=== PATIENT | female | born 1980 | race Two or more races ===

== ENCOUNTER → 2017-03-02 | Outpatient (CLI) | payer OTHER | LOC: BRMIMAGING 14:36 | PROVIDERS: ATTEND Emergency Medicine | DX: E63.9 Nutritional deficiency, unspecified (principal) ==

== ENCOUNTER → 2017-03-22 | Outpatient (CLI) | payer OTHER | LOC: CIMAGING 12:30 | DX: K11.5 Sialolithiasis (principal) | CPT/HCPCS: 76536-PO ==

== ENCOUNTER → 2017-03-29 | Day surgery (SDC) | payer OTHER ==
[~2017-03-29] MED LIST: IOPAMIDOL (ISOVUE-M 300) 15 ML VIAL ONE
== END | disposition home or self-care (01) ==
LOC: FIMAGING 11:05
PROVIDERS: ATTEND Emergency Medicine
PROC: 3E0 Administration, Physiological Systems and Anatomical Regions, Introduction (ICD-10-PCS; principal; 2017-03-29)
DX: K11.5 Sialolithiasis (principal)
CPT/HCPCS: Q9967

== ENCOUNTER 2017-10-02 15:08 | Emergency (ER) | payer OTHER ==
--- NOTE | 2017-10-02 15:33 | EDPHY ---
H & P Stated Complaint: abdominal pain, nasuea, bloating, no appetite past few days Time Seen by Provider: 10/02/17 15:33 HPI/ROS: CHIEF COMPLAINT: Dehydration, abdominal bloating HISTORY OF PRESENT ILLNESS: The patient presents to the ED with complaints of dehydration and abdominal bloating. The patient has a history of chronic abdominal pain and reported gastroparesis. She has had extensive evaluation by life enrichment assistant today. The patient reports her symptoms are typically improved with fasting however have been somewhat refractory to that intervention over the past day. The patient denies any fever. She denies vomiting. She denies diarrhea. REVIEW OF SYSTEMS: A comprehensive 10 point review of systems is otherwise negative aside from elements mentioned in the history of present illness. Source: Patient - Personal History LMP (Females 10-55): 8-14 Days Ago Current Tetanus/Diphtheria Vaccine: No Current Tetanus Diphtheria and Acellular Pertussis (TDAP): No - Medical/Surgical History Hx Asthma: No Hx Chronic Respiratory Disease: No Hx Diabetes: No Hx Cardiac Disease: No Hx Renal Disease: No Hx Cirrhosis: No Hx Alcoholism: No Hx HIV/AIDS: No Hx Splenectomy or Spleen Trauma: No Other PMH: gastroparesis, IVSC, food sensitivities - Social History Smoking Status: Never smoked - Physical Exam Exam: General Appearance: Alert, no distress Eyes: Pupils equal and round no pallor or injection ENT, Mouth: Mucous membranes moist Respiratory: There are no retractions, lungs are clear to auscultation Cardiovascular: Regular rate and rhythm Gastrointestinal: Minimal epigastric tenderness, decreased bowel sounds bilateral Neurological: 5/5 strength all 4 extremities Skin: Warm and dry, no rashes Musculoskeletal: Neck is supple nontender Extremities: symmetrical, full range of motion Constitutional: Initial Vital Signs Temperature (C) 36.4 C 10/02/17 15:11 Heart Rate 79 10/02/17 15:11 Respiratory Rate 20 10/02/17 15:11 Blood Pressure 93/63 L 10/02/17 15:11 O2 Sat (%) 100 10/02/17 15:11 O2 Delivery Mode Room Air Allergies/Adverse Reactions: Penicillins Allergy (Verified 10/02/17 15:10) Sulfa (Sulfonamide Antibiotics) Allergy (Verified 10/02/17 15:10) Home Medications: Medication Instructions Recorded Linzess 10/02/17 Medical Decision Making ED Course/Re-evaluation: The patient had an IV established. She received a L of lactated Ringer's. The patient's laboratory studies are unrevealing. She has no evidence of an acute abdomen. The patient was re-evaluated at 6:00 p.m. and is comfortable being discharged home. She will be advised to follow up with her primary care provider as scheduled. Differential Diagnosis: Differential diagnosis considered includes dehydration, gastroparesis, metabolic abnormality - Data Points Laboratory Results: Laboratory Results 10/02/17 15:30 10/02/17 15:30 10/02/17 10/02/17 15:30 15:30 WBC 5.33 10^3/uL 10^3/uL (3.80-9.50) RBC 4.77 10^6/uL 10^6/uL (4.18-5.33) Hgb 13.1 g/dL g/dL (12.6-16.3) Hct 41.0 % % (38.0-47.0) MCV 86.0 fL fL (81.5-99.8) MCH 27.5 pg L pg (27.9-34.1) MCHC 32.0 g/dL L g/dL (32.4-36.7) RDW 13.8 % % (11.5-15.2) Plt Count 261 10^3/uL 10^3/uL (150-400) MPV 10.6 fL fL (8.7-11.7) Neut % (Auto) 51.4 % % (39.3-74.2) Lymph % (Auto) 33.6 % % (15.0-45.0) [place] % (Auto) 6.0 % % (4.5-13.0) Eos % (Auto) 7.3 % % (0.6-7.6) Baso % (Auto) 1.5 % % (0.3-1.7) Nucleat RBC Rel Count 0.0 % % (0.0-0.2) Absolute Neuts (auto) 2.74 10^3/uL 10^3/uL (1.70-6.50) Absolute Lymphs (auto) 1.79 10^3/uL 10^3/uL (1.00-3.00) Absolute Monos (auto) 0.32 10^3/uL 10^3/uL (0.30-0.80) Absolute Eos (auto) 0.39 10^3/uL 10^3/uL (0.03-0.40) Absolute Basos (auto) 0.08 10^3/uL 10^3/uL (0.02-0.10) Absolute Nucleated RBC 0.00 10^3/uL 10^3/uL (0-0.01) Immature Gran % 0.2 % % (0.0-1.1) Immature Gran # 0.01 10^3/uL 10^3/uL (0.00-0.10) Sodium 142 mEq/L mEq/L (135-145) Potassium 4.2 mEq/L mEq/L (3.5-5.2) Chloride 104 mEq/L mEq/L (97-110) Carbon Dioxide 25 mEq/l mEq/l (22-31) Anion Gap 13 mEq/L mEq/L (8-16) BUN 6 mg/dL L mg/dL (7-23) Creatinine 0.6 mg/dL mg/dL (0.6-1.0) Estimated GFR > 60 Glucose 91 mg/dL mg/dL (70-100) Calcium 9.4 mg/dL mg/dL (8.5-10.4) Medications Given: Discontinued Medications Lactated Ringer's (Lr) 1,000 mls @ 500 mls/hr IV EDNOW ONE Stop: 10/02/17 17:50 Last Admin: 10/02/17 15:56 Dose: 1,000 mls Departure - Departure Disposition: Home, Routine, Self-Care Clinical Impression: Gastroparesis, Dehydration Condition: Good Instructions: Dehydration (ED) Additional Instructions: 1. Please follow-up with your primary care provider as scheduled. 2. Return to the ED for markedly worsening symptoms or other concerns. Referrals: Jermaine Gonzalez MD [Primary Care Provider] - As per Instructions
[2017-10-02 15:47] LABS: PLATELET COUNT 261 10^3/uL (150-400)
[2017-10-02] MEDS ORDERED: LR 1,000 ML IV ONE (15:51)
[2017-10-02 16:53] VITALS: RESP 14
[2017-10-02 18:16] VITALS: BP 104/69; PULSE 70; TEMP 98.1; O2SAT 99
== END 2017-10-02 18:17 | disposition home or self-care (01) ==
DX: E86.0 Dehydration (principal); K31.84 Gastroparesis

== ENCOUNTER 2018-04-24 20:49 | Emergency (ER) | payer OTHER ==
--- NOTE | 2018-04-24 21:19 | EDPHY ---
H & P Stated Complaint: N/V Time Seen by Provider: 04/24/18 21:17 HPI/ROS: HPI: This this is a 38-year-old female who presents with Chief Complaint: Nausea vomiting Location: GI Quality: Nausea vomiting Duration: Today Signs and Symptoms: no fever, + nausea, + vomiting, no hematemesis, no blood in stool, no abdominal bloating, no diarrhea, no back pain, no urinary symptoms, no vaginal bleeding/discharge, no indigestion, no chest pain, no shortness of breath Timing: Acute on chronic Severity: Acute on chronic Context: Patient has a history of gastroparesis, IVSC and food sensitivities presents with complaints of"having a bad day of nausea and vomiting." Patient was recently discharged from the [facility] after 1 month stay and diagnosed with eosinophil esophagitis. Patient reports that she is here in the emergency room as she was unable to contacted nurse renan to obtain IV fluids. She is a Jermaine Lisa patient. Patient is only requesting IV fluids. Patient apologizes profusely that she is irritable and does not want to answer any more questions during the interview. Modifying Factors: None Comment: ROS: A comprehensive 10 system review of systems is otherwise negative aside from elements mentioned in the history of present illness. MEDICAL/SURGICAL/SOCIAL HISTORY: Medical history: gastroparesis, IVSC, food sensitivities Surgical history: Denies Social history: . Family history noncontributory. CONSTITUTIONAL: Nontoxic appearing middle-aged female, awake and alert, no obvious distress HEENT: Atraumatic and normocephalic, PERRL, EOMI. Nares patent; no rhinorrhea; no nasal mucosal edema. Tympanic membranes clear. Oropharynx clear, no exudate and moist pink mucosa. Airway patent. No lymphadenopathy. No meningismus. Cardiovascular: Normal S1/S2, regular rate, regular rhythm, without murmur rub or gallop. PULMONARY/CHEST: Symmetrical and nontender. Clear to auscultation bilaterally. Good air movement. No accessory muscle usage. ABDOMEN: Soft, nondistended, mild generalized tenderness, no rebound, no guarding, no peritoneal signs, no masses or organomegaly. No CVAT. EXTREMITIES: 2/2 pulses, strength 5/5, no deformities, no clubbing, no cyanosis or edema. NEUROLOGICAL: no focal neuro deficits. GCS 15. SKIN: Warm and dry, no erythema. no rash. Good capillary refill. Source: Patient Exam Limitations: No limitations - Personal History LMP (Females 10-55): Unknown Current Tetanus/Diphtheria Vaccine: Unsure - Medical/Surgical History Hx Asthma: No Hx Chronic Respiratory Disease: No Hx Diabetes: No Hx Cardiac Disease: No Hx Renal Disease: No Hx Cirrhosis: No Hx Alcoholism: No Hx HIV/AIDS: No Hx Splenectomy or Spleen Trauma: No Other PMH: gastroparesis, IVSC, food sensitivities - Social History Smoking Status: Never smoked Constitutional: Initial Vital Signs Temperature (C) 36.7 C 04/24/18 20:54 Heart Rate 80 04/24/18 20:54 Respiratory Rate 18 04/24/18 20:54 Blood Pressure 99/66 L 04/24/18 20:54 O2 Sat (%) 99 04/24/18 20:54 O2 Delivery Mode Room Air Allergies/Adverse Reactions: Penicillins Allergy (Verified 04/24/18 20:56) Sulfa (Sulfonamide Antibiotics) Allergy (Verified 04/24/18 20:56) Home Medications: Medication Instructions Recorded Linzess 10/02/17 Medical Decision Making ED Course/Re-evaluation: Vital signs reviewed and stable upon arrival. Patient declines antiemetics, imaging. Labs reviewed. No signs of leukocytosis/platelet dysfunction/TRACI/elevated LFTs/ electrolyte imbalance. Given IV fluids per request and discharged with follow up with Dr. Gonzalez. This patient was seen under the supervision of my secondary supervising physician. I evaluated care for this patient independently. Discussed this patient with Dr. Busch. Differential Diagnosis: Differential diagnosis includes nausea, vomiting - Data Points Laboratory Results: Laboratory Results 04/24/18 21:10 04/24/18 21:10 04/24/18 04/24/18 21:10 21:10 WBC 8.03 10^3/uL 10^3/uL (3.80-9.50) RBC 4.32 10^6/uL 10^6/uL (4.18-5.33) Hgb 12.1 g/dL L g/dL (12.6-16.3) Hct 36.6 % L % (38.0-47.0) MCV 84.7 fL fL (81.5-99.8) MCH 28.0 pg pg (27.9-34.1) MCHC 33.1 g/dL g/dL (32.4-36.7) RDW 13.8 % % (11.5-15.2) Plt Count 244 10^3/uL 10^3/uL (150-400) MPV 10.9 fL fL (8.7-11.7) Neut % (Auto) 58.5 % % (39.3-74.2) Lymph % (Auto) 35.2 % % (15.0-45.0) [place] % (Auto) 4.4 % L % (4.5-13.0) Eos % (Auto) 1.2 % % (0.6-7.6) Baso % (Auto) 0.5 % % (0.3-1.7) Nucleat RBC Rel Count 0.0 % % (0.0-0.2) Absolute Neuts (auto) 4.69 10^3/uL 10^3/uL (1.70-6.50) Absolute Lymphs (auto) 2.83 10^3/uL 10^3/uL (1.00-3.00) Absolute Monos (auto) 0.35 10^3/uL 10^3/uL (0.30-0.80) Absolute Eos (auto) 0.10 10^3/uL 10^3/uL (0.03-0.40) Absolute Basos (auto) 0.04 10^3/uL 10^3/uL (0.02-0.10) Absolute Nucleated RBC 0.00 10^3/uL 10^3/uL (0-0.01) Immature Gran % 0.2 % % (0.0-1.1) Immature Gran # 0.02 10^3/uL 10^3/uL (0.00-0.10) Sodium 136 mEq/L mEq/L (135-145) Potassium 3.9 mEq/L mEq/L (3.3-5.0) Chloride 104 mEq/L mEq/L (97-110) Carbon Dioxide 25 mEq/l mEq/l (22-31) Anion Gap 7 mEq/L L mEq/L (8-16) BUN 6 mg/dL L mg/dL (7-23) Creatinine 0.6 mg/dL mg/dL (0.6-1.0) Estimated GFR > 60 Glucose 92 mg/dL mg/dL (70-100) Calcium 9.6 mg/dL mg/dL (8.5-10.4) Total Bilirubin 0.5 mg/dL mg/dL (0.1-1.4) AST 16 IU/L IU/L (14-46) ALT 23 IU/L IU/L (9-52) Alkaline Phosphatase 58 IU/L IU/L (38-126) Total Protein 6.6 g/dL g/dL (6.3-8.2) Albumin 3.9 g/dL g/dL (3.5-5.0) Lipase 163 IU/L IU/L (23-300) TSH Pending Medications Given: Dextrose/Sodium Chloride (D5w 1/2 Ns) 1,000 mls @ 999 mls/hr IV CONT CESAR Stop: 10/21/18 21:29 Last Admin: 04/24/18 21:28 Dose: 1,000 mls Departure - Departure Disposition: Home, Routine, Self-Care Clinical Impression: Eosinophilic esophagitis Condition: Good Instructions: Allergic Esophagitis (ED) Additional Instructions: Consume a minimum of 8-10 glasses of water or electrolyte fluid replacement drinks that include Gatorade, Powerade, Pedialyte. Eat a bland diet for the next 48 hours and then slowly advance as tolerated. Follow-up with Dr. Gonzalez. Return to the Emergency Room if symptoms do not resolve in the next 48-72 hours , you spike a fever > 102 F, or experience intractable abdominal pain/nausea/ vomiting. Referrals: Jermaine Gonzalez MD [Primary Care Provider] - As per Instructions
[2018-04-24 21:24] LABS: PLATELET COUNT 244 10^3/uL (150-400)
[2018-04-24] MEDS ORDERED: D5W 1/2 NS 1,000 ML IV SCH (21:30)
[2018-04-24 22:42] VITALS: BP 100/61
== END 2018-04-24 22:42 | disposition home or self-care (01) ==
DX: K20.0 Eosinophilic esophagitis (principal)
CPT/HCPCS: 84144-90

== ENCOUNTER → 2018-05-15 | Outpatient (CLI) | payer BC | LOC: FIMAGING 14:26 | PROVIDERS: ATTEND Emergency Medicine | DX: Z03.89 Encounter for observation for other suspected diseases and conditions ruled out (principal) ==